=== PATIENT | male | born 1965 | race Caucasian/White ===

== ENCOUNTER → 2017-09-15 | Outpatient (CLI) | payer OTHER | END | disposition home or self-care (01) | LOC: CT 12:59 | DX: M54.6 Pain in thoracic spine (principal); G89.29 Other chronic pain; R10.11 Right upper quadrant pain ==

== ENCOUNTER → 2017-12-21 | Outpatient (CLI) | payer OTHER ==
[2017-12-21 11:44] LABS: ALBUMIN 3.9 gm/dl (3.1-4.5); ALKALINE PHOSPHATASE 47 U/L (45-117); BUN 19 mg/dl (7-24); CHLORIDE 104 mmol/L (98-107); CREATININE 1.13 mg/dL (0.70-1.30); POTASSIUM 4.3 mmol/L (3.5-5.1); SGOT/AST 18 IU/L (3-35); SGPT/ALT 26 U/L (12-78); SODIUM 139 mmol/L (136-145); TOTAL PROTEIN 7.6 gm/dL (6.4-8.2)
== END | disposition home or self-care (01) ==
LOC: LAB 10:59
PROVIDERS: Internal Medicine
DX: R17 Unspecified jaundice (principal); V89.2XXD Person injured in unspecified motor-vehicle accident, traffic, subsequent encounter; X58.XXXD Exposure to other specified factors, subsequent encounter

== ENCOUNTER 2022-07-16 14:11 | Emergency (ER) | payer OTHER ==
[~2022-07-16] VITALS: Ht 167.6 cm; Wt 72.6 kg
[2022-07-16] MEDS ORDERED: AMOX-CLAV 875-1 EACH PO (15:39)
[2022-07-16] MEDS ORDERED: MEDROL DOSEPAK4 MG PO (16:21)
== END 2022-07-16 16:24 | disposition home or self-care (01) ==
LOC: ED 14:11
DX: S61.411A Laceration without foreign body of right hand, initial encounter (principal); S51.812A Laceration without foreign body of left forearm, initial encounter; S81.011A Laceration without foreign body, right knee, initial encounter; S91.012A Laceration without foreign body, left ankle, initial encounter; F17.200 Nicotine dependence, unspecified, uncomplicated; W54.0XXA Bitten by dog, initial encounter; Y93.89 Activity, other specified; Y92.89 Other specified places as the place of occurrence of the external cause; Y99.8 Other external cause status